=== PATIENT | female | born 1945 | race Caucasian/White ===

== ENCOUNTER 2020-10-14 15:19 | Inpatient (IN) ==
[2020-10-14] MEDS ORDERED: (Diclofenac Sodium [Arthritis Pain] 100 GM Gel..Gram. TP PRN (16:08)
[2020-10-14] MEDS ORDERED: Fluticasone Propionate Nasal 50 MCG/SPRAY BOTTLE NS PRN (16:08)
[2020-10-14] MEDS ORDERED: Nitroglycerin 0.4 MG TAB.SUBL SL PRN (16:08)
[2020-10-14] MEDS ORDERED: Lactulose Oral Soln 20 GM/30 ML UDC PO PRN (16:08)
[2020-10-14] MEDS ORDERED: Oxymetazoline Nasal SPRAY BOTTLE NS PRN (16:08)
[2020-10-14] MEDS: Budesonide/Formoterol 160/4.5 1 PUFF INH IH SCH (19:36)
[2020-10-14] MEDS: GuaiFENesin Liq 200 MG/10 ML UDC PO SCH (21:05)
[2020-10-14] MEDS: Metoprolol XL (24 HR) Succ 25 MG TAB.ER.24H PO SCH (21:08)
[2020-10-14] MEDS: predniSONE 20 MG TABLET PO SCH (21:10)
[2020-10-14] MEDS: ALPRAZolam 0.5 MG TABLET PO SCH (21:11)
[2020-10-14] MEDS: Famotidine 20 MG TABLET PO SCH (21:11)
[2020-10-15] MEDS: GuaiFENesin Liq 200 MG/10 ML UDC PO SCH (05:43)
[2020-10-15] MEDS: *HR* Enoxaparin 40 MG/0.4 ML SYRINGE SQ SCH (05:43)
[2020-10-15 06:16] LABS: Basophils # 0.1 K/mcL (0.0-0.2); Basophils % 0.9 %; Eosinophils # 0.2 K/mcL (0.0-0.6); Eosinophils % 3.5 %; Hematocrit 33.9 % (35.3-44.9); Hemoglobin 10.7 g/dL (11.5-15.4); Immature Granulocytes % 0.4 % (0-4); Lymphocytes # 1.1 K/mcL (0.6-4.6); Lymphocytes % 19.9 %; Mean Corpuscular HGB Conc 31.6 g/dL (31.6-35.5); Mean Corpuscular Hemoglobin 28.1 pg (28.0-33.3); Mean Platelet Volume 8.2 fL (9.4-12.4); Monocytes # 0.9 K/mcL (0.0-1.3); Monocytes % 15.4 %; Neutrophils # 3.4 K/mcL (1.6-8.9); Platelet Count 399 K/mcL (140-400); Red Blood Count 3.81 M/mcL (3.82-4.97); Red Cell Distribution Width 14.5 % (11.5-14.5); Segmented Neutrophils % 59.9 %; White Blood Count 5.6 K/mcL (4.3-11.1)
[2020-10-15 06:35] LABS: BUN/Creatinine Ratio 20 (6-26); Blood Urea Nitrogen 11 mg/dL (8-23); Calcium 8.8 mg/dL (8.6-10.3); Carbon Dioxide 38 mEq/L (23-29); Chloride 87 mEq/L (98-107); Glucose 77 mg/dL (70-105); Osmolality,Calculated 268 (280-300); Potassium 4.6 mEq/L (3.5-5.1); Sodium 130 mEq/L (136-145); eGFR For African Americans > 60 (> 60); eGFR For Non-African Americans > 60 (> 60)
[2020-10-15] MEDS: Budesonide/Formoterol 160/4.5 1 PUFF INH IH SCH ×2 (08:07→20:06)
[2020-10-15] MEDS: Tiotropium 10 INH DOSE IH SCH (08:08)
[2020-10-15] MEDS ORDERED: [UNRECOGNIZED DRUG - REMARK] PO SCH (09:00)
[2020-10-15] MEDS: Multivit/Ca/Min/Fe/FA 1 TAB TABLET PO SCH (09:19)
[2020-10-15] MEDS: Aspirin Enteric Coated 81 MG Tablet PO SCH (09:19)
[2020-10-15] MEDS: Metoprolol XL (24 HR) Succ 25 MG TAB.ER.24H PO SCH ×2 (09:19→21:46)
[2020-10-15] MEDS: predniSONE 20 MG TABLET PO SCH (09:25)
[2020-10-15 11:04] LABS: Albumin 3.9 g/dL (3.5-5.7); Albumin/Globulin Ratio 1.8 (1.1-2.2); Bilirubin,Direct 0.1 mg/dL (0.0-0.2); Bilirubin,Indirect 0.2 mg/dL (0.0-1.0); Bilirubin,Total 0.3 mg/dL (0.3-1.0); Globulin 2.2 g/dL (2.4-3.5); Total Protein 6.1 g/dL (6.4-8.9)
[2020-10-15] MEDS: ALPRAZolam 0.25 MG TABLET PO PRN (11:20)
[2020-10-15] MEDS: GuaiFENesin Liq 200 MG/10 ML UDC PO PRN ×2 (12:25→21:46)
[2020-10-15] MEDS ORDERED: Mag Hydrox/Al Hydrox/Simeth 30 ML UDC PO PRN (18:19)
[2020-10-15] MEDS: Famotidine 20 MG TABLET PO SCH (21:46)
[2020-10-15] MEDS: ALPRAZolam 0.5 MG TABLET PO SCH (21:46)
[2020-10-16] MEDS: GuaiFENesin Liq 200 MG/10 ML UDC PO PRN ×2 (03:43→18:04)
[2020-10-16] MEDS: *HR* Enoxaparin 40 MG/0.4 ML SYRINGE SQ SCH (03:43)
[2020-10-16] MEDS: Budesonide/Formoterol 160/4.5 1 PUFF INH IH SCH ×2 (06:25→18:57)
[2020-10-16] MEDS: Tiotropium 10 INH DOSE IH SCH (06:26)
[2020-10-16] MEDS: Metoprolol XL (24 HR) Succ 25 MG TAB.ER.24H PO SCH ×2 (08:14→22:14)
[2020-10-16] MEDS: Multivit/Ca/Min/Fe/FA 1 TAB TABLET PO SCH (10:02)
[2020-10-16] MEDS: Aspirin Enteric Coated 81 MG Tablet PO SCH (10:02)
[2020-10-16] MEDS: Loratadine 10 MG TABLET PO SCH (10:03)
[2020-10-16] MEDS: ALPRAZolam 0.25 MG TABLET PO PRN (18:04)
[2020-10-16] MEDS: ALPRAZolam 0.5 MG TABLET PO SCH (22:13)
[2020-10-16] MEDS: Famotidine 20 MG TABLET PO SCH (22:14)
[2020-10-17] MEDS: GuaiFENesin Liq 200 MG/10 ML UDC PO PRN ×2 (06:49→22:14)
[2020-10-17] MEDS: *HR* Enoxaparin 40 MG/0.4 ML SYRINGE SQ SCH (06:49)
[2020-10-17] MEDS: Budesonide/Formoterol 160/4.5 1 PUFF INH IH SCH ×2 (07:41→20:41)
[2020-10-17] MEDS: Loratadine 10 MG TABLET PO SCH (08:53)
[2020-10-17] MEDS: Simethicone 80 MG TAB.CHEW PO PRN (08:54)
[2020-10-17] MEDS: Aspirin Enteric Coated 81 MG Tablet PO SCH (08:54)
[2020-10-17] MEDS: Multivit/Ca/Min/Fe/FA 1 TAB TABLET PO SCH (08:54)
[2020-10-17] MEDS: Metoprolol XL (24 HR) Succ 25 MG TAB.ER.24H PO SCH ×2 (08:54→22:15)
[2020-10-17 10:56] LABS: Basophils % 0.4 %; Eosinophils # 0.1 K/mcL (0.0-0.6); Eosinophils % 0.6 %; Hematocrit 33.9 % (35.3-44.9); Hemoglobin 10.6 g/dL (11.5-15.4); Immature Granulocytes % 0.5 % (0-4); Lymphocytes # 0.6 K/mcL (0.6-4.6); Lymphocytes % 5.7 %; Mean Corpuscular HGB Conc 31.3 g/dL (31.6-35.5); Mean Corpuscular Volume 89.4 fL (83.0-100.0); Mean Platelet Volume 8.1 fL (9.4-12.4); Monocytes % 8.6 %; Neutrophils # 9.4 K/mcL (1.6-8.9); Platelet Count 425 K/mcL (140-400); Red Blood Count 3.79 M/mcL (3.82-4.97); Red Cell Distribution Width 15.1 % (11.5-14.5); Segmented Neutrophils % 84.2 %; White Blood Count 11.2 K/mcL (4.3-11.1)
[2020-10-17 11:08] LABS: BUN/Creatinine Ratio 14 (6-26); Blood Urea Nitrogen 8 mg/dL (8-23); Carbon Dioxide 36 mEq/L (23-29); Chloride 90 mEq/L (98-107); Glucose 116 mg/dL (70-105); Osmolality,Calculated 271 (280-300); Potassium 4.4 mEq/L (3.5-5.1); Sodium 131 mEq/L (136-145); eGFR For African Americans > 60 (> 60); eGFR For Non-African Americans > 60 (> 60)
[2020-10-17 11:32] LABS: Bilirubin,Urine Negative (Negative); Blood,Urine Large (Negative); Clarity,Urine Clear (Clear); Color,Urine Amber (Yellow); Glucose,Urine (UA) Normal (Normal); Ketones,Urine Trace mg/dL (Negative); Leukocyte Esterase,Urine Moderate (Negative); Nitrite,Urine Negative (Negative); Protein,Urine 100 mg/dL (Neg-Trace); Urobilinogen,Urine Normal (Normal)
[2020-10-17 11:37] LABS: Bacteria,Urine Moderate per hpf (None-Few); RBC,Urine TNTC per hpf (0-3); Squamous Epithelial Cell,Urine Few per hpf (None-Few); WBC,Urine 15-30 per hpf (0-3)
[2020-10-17] MEDS: Amoxicillin 500 MG CAPSULE PO SCH ×2 (14:25→22:15)
[2020-10-17] MEDS: ALPRAZolam 0.5 MG TABLET PO SCH (22:14)
[2020-10-17] MEDS: Famotidine 20 MG TABLET PO SCH (22:15)
[2020-10-18] MEDS: *HR* Enoxaparin 40 MG/0.4 ML SYRINGE SQ SCH (06:36)
[2020-10-18] MEDS: GuaiFENesin Liq 200 MG/10 ML UDC PO PRN ×2 (06:36→13:41)
[2020-10-18] MEDS: Amoxicillin 500 MG CAPSULE PO SCH ×2 (08:56→19:52)
[2020-10-18] MEDS: Multivit/Ca/Min/Fe/FA 1 TAB TABLET PO SCH (08:56)
[2020-10-18] MEDS: Aspirin Enteric Coated 81 MG Tablet PO SCH (08:57)
[2020-10-18] MEDS: Loratadine 10 MG TABLET PO SCH (08:57)
[2020-10-18] MEDS: Metoprolol XL (24 HR) Succ 25 MG TAB.ER.24H PO SCH ×2 (08:57→19:52)
[2020-10-18] MEDS: Budesonide/Formoterol 160/4.5 1 PUFF INH IH SCH ×2 (09:12→20:03)
[2020-10-18 10:14] LABS: Basophils # 0.1 K/mcL (0.0-0.2); Basophils % 0.8 %; Eosinophils # 0.1 K/mcL (0.0-0.6); Eosinophils % 1.5 %; Hematocrit 33.3 % (35.3-44.9); Hemoglobin 10.5 g/dL (11.5-15.4); Immature Granulocytes % 0.5 % (0-4); Lymphocytes # 0.8 K/mcL (0.6-4.6); Lymphocytes % 9.9 %; Mean Corpuscular HGB Conc 31.5 g/dL (31.6-35.5); Mean Corpuscular Hemoglobin 28.5 pg (28.0-33.3); Mean Corpuscular Volume 90.5 fL (83.0-100.0); Mean Platelet Volume 8.1 fL (9.4-12.4); Monocytes # 0.9 K/mcL (0.0-1.3); Monocytes % 11.8 %; Neutrophils # 5.9 K/mcL (1.6-8.9); Platelet Count 405 K/mcL (140-400); Red Blood Count 3.68 M/mcL (3.82-4.97); Red Cell Distribution Width 15.2 % (11.5-14.5); Segmented Neutrophils % 75.5 %; White Blood Count 7.8 K/mcL (4.3-11.1)
[2020-10-18 10:38] LABS: BUN/Creatinine Ratio 14 (6-26); Blood Urea Nitrogen 8 mg/dL (8-23); Calcium 9.1 mg/dL (8.6-10.3); Carbon Dioxide 37 mEq/L (23-29); Chloride 90 mEq/L (98-107); Glucose 159 mg/dL (70-105); Osmolality,Calculated 274 (280-300); Potassium 4.3 mEq/L (3.5-5.1); Sodium 131 mEq/L (136-145); eGFR For African Americans > 60 (> 60); eGFR For Non-African Americans > 60 (> 60)
[2020-10-18] MEDS: ALPRAZolam 0.25 MG TABLET PO PRN (15:28)
[2020-10-18] MEDS: Simethicone 80 MG TAB.CHEW PO PRN (15:32)
[2020-10-18] MEDS: Famotidine 20 MG TABLET PO SCH (19:52)
[2020-10-18] MEDS: ALPRAZolam 0.5 MG TABLET PO SCH (19:52)
[2020-10-19] MEDS: *HR* Enoxaparin 40 MG/0.4 ML SYRINGE SQ SCH (05:12)
[2020-10-19] MEDS: Budesonide/Formoterol 160/4.5 1 PUFF INH IH SCH ×2 (07:31→20:56)
[2020-10-19] MEDS: Amoxicillin 500 MG CAPSULE PO SCH ×2 (08:01→20:39)
[2020-10-19] MEDS: GuaiFENesin Liq 200 MG/10 ML UDC PO PRN ×3 (08:01→20:48)
[2020-10-19] MEDS: Metoprolol XL (24 HR) Succ 25 MG TAB.ER.24H PO SCH ×2 (08:01→20:40)
[2020-10-19] MEDS: Aspirin Enteric Coated 81 MG Tablet PO SCH (08:01)
[2020-10-19] MEDS: Loratadine 10 MG TABLET PO SCH (08:01)
[2020-10-19] MEDS: Multivit/Ca/Min/Fe/FA 1 TAB TABLET PO SCH (08:01)
[2020-10-19] MEDS: Fluticasone Propionate Nasal 50 MCG/SPRAY BOTTLE NS PRN (14:01)
[2020-10-19] MEDS ORDERED: Bisacodyl 10 MG RECTAL SUPPOSITORY RC PRN (14:55)
[2020-10-19] MEDS ORDERED: Melatonin 3 MG TABLET PO PRN (19:31)
[2020-10-19] MEDS: ALPRAZolam 0.5 MG TABLET PO SCH (20:40)
[2020-10-19] MEDS: Famotidine 20 MG TABLET PO SCH (20:40)
[2020-10-20] MEDS: *HR* Enoxaparin 40 MG/0.4 ML SYRINGE SQ SCH (04:50)
[2020-10-20] MEDS: Budesonide/Formoterol 160/4.5 1 PUFF INH IH SCH ×2 (07:36→19:57)
[2020-10-20] MEDS: ALPRAZolam 0.25 MG TABLET PO PRN (07:45)
[2020-10-20] MEDS: Multivit/Ca/Min/Fe/FA 1 TAB TABLET PO SCH (07:46)
[2020-10-20] MEDS: Aspirin Enteric Coated 81 MG Tablet PO SCH (07:46)
[2020-10-20] MEDS: Metoprolol XL (24 HR) Succ 25 MG TAB.ER.24H PO SCH ×2 (07:46→21:41)
[2020-10-20] MEDS: Loratadine 10 MG TABLET PO SCH (07:46)
[2020-10-20] MEDS: Amoxicillin 500 MG CAPSULE PO SCH ×2 (07:46→21:40)
[2020-10-20] MEDS: GuaiFENesin Liq 200 MG/10 ML UDC PO PRN ×2 (15:16→21:41)
[2020-10-20] MEDS: ALPRAZolam 0.5 MG TABLET PO SCH (21:40)
[2020-10-20] MEDS: Famotidine 20 MG TABLET PO SCH (21:40)
[2020-10-21] MEDS: ALPRAZolam 0.25 MG TABLET PO PRN ×2 (04:18→16:08)
[2020-10-21] MEDS: *HR* Enoxaparin 40 MG/0.4 ML SYRINGE SQ SCH (04:21)
[2020-10-21] MEDS: Budesonide/Formoterol 160/4.5 1 PUFF INH IH SCH ×2 (09:00→18:58)
[2020-10-21] MEDS: Amoxicillin 500 MG CAPSULE PO SCH ×2 (09:04→21:07)
[2020-10-21] MEDS: Metoprolol XL (24 HR) Succ 25 MG TAB.ER.24H PO SCH ×2 (09:04→21:07)
[2020-10-21] MEDS: Loratadine 10 MG TABLET PO SCH (09:04)
[2020-10-21] MEDS: Aspirin Enteric Coated 81 MG Tablet PO SCH (09:05)
[2020-10-21] MEDS: Multivit/Ca/Min/Fe/FA 1 TAB TABLET PO SCH (09:05)
[2020-10-21] MEDS: Saline Nasal Spray 44 ML BOTTLE NS PRN (21:06)
[2020-10-21] MEDS: ALPRAZolam 0.5 MG TABLET PO SCH (21:07)
[2020-10-21] MEDS: Famotidine 20 MG TABLET PO SCH (21:07)
[2020-10-22] MEDS: GuaiFENesin Liq 200 MG/10 ML UDC PO PRN ×3 (03:22→21:23)
[2020-10-22] MEDS: *HR* Enoxaparin 40 MG/0.4 ML SYRINGE SQ SCH (04:56)
[2020-10-22] MEDS: Saline Nasal Spray 44 ML BOTTLE NS PRN ×2 (05:07→21:22)
[2020-10-22] MEDS: ALPRAZolam 0.25 MG TABLET PO PRN (05:10)
[2020-10-22 06:08] LABS: Basophils # 0.1 K/mcL (0.0-0.2); Basophils % 0.5 %; Eosinophils # 0.3 K/mcL (0.0-0.6); Eosinophils % 2.7 %; Hematocrit 32.8 % (35.3-44.9); Hemoglobin 10.3 g/dL (11.5-15.4); Immature Granulocytes % 0.3 % (0-4); Lymphocytes # 1.3 K/mcL (0.6-4.6); Lymphocytes % 12.5 %; Mean Corpuscular HGB Conc 31.4 g/dL (31.6-35.5); Mean Corpuscular Hemoglobin 28.5 pg (28.0-33.3); Mean Corpuscular Volume 90.9 fL (83.0-100.0); Mean Platelet Volume 8.3 fL (9.4-12.4); Monocytes # 1.3 K/mcL (0.0-1.3); Monocytes % 13.2 %; Neutrophils # 7.1 K/mcL (1.6-8.9); Platelet Count 480 K/mcL (140-400); Red Blood Count 3.61 M/mcL (3.82-4.97); Red Cell Distribution Width 15.1 % (11.5-14.5); Segmented Neutrophils % 70.8 %
[2020-10-22] MEDS: Budesonide/Formoterol 160/4.5 1 PUFF INH IH SCH ×2 (06:09→19:46)
[2020-10-22 07:17] LABS: BUN/Creatinine Ratio 19 (6-26); Blood Urea Nitrogen 10 mg/dL (8-23); Calcium 9.3 mg/dL (8.6-10.3); Carbon Dioxide 36 mEq/L (23-29); Chloride 92 mEq/L (98-107); Glucose 83 mg/dL (70-105); Osmolality,Calculated 276 (280-300); Potassium 4.6 mEq/L (3.5-5.1); Sodium 134 mEq/L (136-145); eGFR For African Americans > 60 (> 60); eGFR For Non-African Americans > 60 (> 60)
[2020-10-22 07:25] LABS: Thyroid Stimulating Hormone 2.191 mcIU/mL (0.340-5.600)
[2020-10-22] MEDS: Multivit/Ca/Min/Fe/FA 1 TAB TABLET PO SCH (08:22)
[2020-10-22] MEDS: Amoxicillin 500 MG CAPSULE PO SCH ×2 (08:23→21:23)
[2020-10-22] MEDS: Aspirin Enteric Coated 81 MG Tablet PO SCH (08:23)
[2020-10-22] MEDS: Metoprolol XL (24 HR) Succ 25 MG TAB.ER.24H PO SCH ×2 (08:23→21:23)
[2020-10-22] MEDS: Loratadine 10 MG TABLET PO SCH (08:23)
[2020-10-22] MEDS: Simethicone 80 MG TAB.CHEW PO PRN (18:08)
[2020-10-22] MEDS: Fluticasone Propionate Nasal 50 MCG/SPRAY BOTTLE NS PRN (21:22)
[2020-10-22] MEDS: ALPRAZolam 0.5 MG TABLET PO SCH (21:23)
[2020-10-22] MEDS: Famotidine 20 MG TABLET PO SCH (21:23)
[2020-10-23 00:05] VITALS: O2SAT 98
[2020-10-23] MEDS: GuaiFENesin Liq 200 MG/10 ML UDC PO PRN (05:35)
[2020-10-23] MEDS: *HR* Enoxaparin 40 MG/0.4 ML SYRINGE SQ SCH (06:40)
[2020-10-23] MEDS: Budesonide/Formoterol 160/4.5 1 PUFF INH IH SCH (06:49)
[2020-10-23 07:43] VITALS: BP 154/82; PULSE 94; TEMP 98
[2020-10-23] MEDS: Amoxicillin 500 MG CAPSULE PO SCH (08:02)
[2020-10-23] MEDS: Metoprolol XL (24 HR) Succ 25 MG TAB.ER.24H PO SCH (08:02)
[2020-10-23] MEDS: Aspirin Enteric Coated 81 MG Tablet PO SCH (08:02)
[2020-10-23] MEDS: Multivit/Ca/Min/Fe/FA 1 TAB TABLET PO SCH (08:02)
[2020-10-23] MEDS: Loratadine 10 MG TABLET PO SCH (08:03)
[2020-10-23] MEDS: ALPRAZolam 0.25 MG TABLET PO PRN (10:17)
[2020-10-23 11:07] VITALS: RESP 18
== END 2020-10-23 11:40 | disposition home health service (06) | DRG 945 ==
LOC: INPGRE 18:54
PROVIDERS: ADMIT Family Medicine; ATTEND Family Medicine